=== PATIENT | male | born 1940 | race Caucasian/White ===

== ENCOUNTER 2016-05-19 09:11 | Emergency (ER) | payer OTHER | END 2016-05-19 09:20 | disposition left against medical advice (07) | LOC: CED 09:11 | DX: M79.661 Pain in right lower leg (principal); M79.89 Other specified soft tissue disorders; Z53.8 Procedure and treatment not carried out for other reasons ==

== ENCOUNTER → 2016-05-25 | Outpatient (CLI) | payer OTHER | LOC: CIMAGING 10:33 | PROVIDERS: ATTEND Nurse Practitioner | DX: M79.661 Pain in right lower leg (principal); Y93.55 Activity, bike riding | CPT/HCPCS: 73590-PO; G0463-PO ==

== ENCOUNTER → 2016-12-12 | Outpatient (CLI) | payer OTHER | LOC: BRMIMAGING 10:28 | PROVIDERS: ATTEND Internal Medicine Rheumatology | DX: M06.4 Inflammatory polyarthropathy (principal) | CPT/HCPCS: 73120-PO; 73630-PO ==

== ENCOUNTER → 2016-12-25 | Outpatient (CLI) | payer OTHER | LOC: CIMAGING 09:52 | PROVIDERS: ATTEND Physician Assistant Medical | DX: K59.00 Constipation, unspecified (principal) | CPT/HCPCS: 74000-PO ==

== ENCOUNTER 2017-04-15 10:42 | Emergency (ER) | payer OTHER ==
[2017-04-15 11:03] VITALS: BP 154/62; PULSE 74; RESP 18; TEMP 98; O2SAT 94
--- NOTE | 2017-04-15 11:21 | EDPHY ---
H & P Stated Complaint: c/o Rt arm/shoulder/hand swelling Time Seen by Provider: 04/15/17 10:48 HPI/ROS: Chief Complaint: Right arm pain and swelling HPI: 76-year-old male with a history of intermittent right hand swelling for the last several months. 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 He has had significant workup including x-rays, laboratory evaluations on the 2nd of this month which were normal including a normal CRP and normal uric acid. Patient states last night he felt that his right arm and wrist were more swollen than normal. Denies any recent trauma. No chest pain shortness of breath. No redness or warmth. He does have a history of renal cancer, had cryoablation therapy but has not a candidate for surgery at this time. Last MRI was in December. He has not had any imaging of his chest for the last several years. No cough or shortness of breath. ROS: 10 point Review of Systems is negative except as noted in the HPI. PMH: Renal cancer, hypertension, arthritis Social History: No smoking, no alcohol, no recreational drug use Family History: non-contributory Physical Exam: Gen: Awake, Alert, No Distress HEENT: Nose: no rhinorrhea Eyes: PERRLA, EOMI Mouth: Moist mucosa Neck: Supple, no JVD Chest: nontender, lungs clear to auscultation Heart: S1, S2 normal, no murmur Abd: Soft, non-tender, no guarding Back: no CVA tenderness, no midline tenderness Ext: There is mild erythema which is chronic in his right hand. He has no significant swelling of his forearms or wrist. I have measured them bilaterally and they are equal bilaterally. There is no soft tissue tenderness. No erythema. He has full range of motions of his wrist elbow in joint without any pain. He has 2+ radial ulnar pulses. Sensations intact in the radial, median, and ulnar nerve distribution. Capillary refill less than 2 sec bilaterally. Skin: no rash Neuro: CN II-XII intact, Sensation grossly intact, Strength 5/5 in bilateral upper and lower extremities - Personal History Tetanus Vaccine Date: < 10 years - Medical/Surgical History Hx Asthma: No Hx Chronic Respiratory Disease: No Hx Diabetes: No Hx Cardiac Disease: Yes Hx Renal Disease: Yes Hx Cirrhosis: No Hx Alcoholism: No Hx HIV/AIDS: No Hx Splenectomy or Spleen Trauma: No Other PMH: foot sx, kidney cancer surgery. HTN, hyperlipidemia, Vtach - Social History Smoking Status: Never smoked Constitutional: Initial Vital Signs Temperature (C) 36.6 C 04/15/17 10:57 Heart Rate 74 04/15/17 10:57 Respiratory Rate 18 04/15/17 10:57 Blood Pressure 154/62 H 04/15/17 10:57 O2 Sat (%) 94 04/15/17 10:57 O2 Delivery Mode Room Air Allergies/Adverse Reactions: No Known Allergies Allergy (Verified 02/10/16 13:17) Home Medications: Medication Instructions Recorded HCTZ (*) 02/10/16 LISINOPRIL/HYDROCHLOROTHIAZIDE 02/10/16 Metoprolol Tartrate 02/10/16 Norvasc 02/10/16 Potassium 02/10/16 SIMVASTATIN 02/10/16 Medical Decision Making ED Course/Re-evaluation: Patient presenting with concerns of swelling of his right arm. He is not significantly swollen at this time. There is no evidence of DVT. Patient does have a history of renal cancer. There is a possibility of possible intermittent vascular compression. I would be most concerned about an intrathoracic mass which might be causing this given his known renal cancer. Will get a chest x-ray now to rule out any intrathoracic mass which might be causing this. I do not not think a ultrasound is useful at this time because he does not have any swelling. The process which would be causing this would be intermittent. It is certainly possible that it is related to his migratory arthritis. I will refer him back to his bell valet for further evaluation. With a negative chest x-ray I do not think there is any evidence of acute process at this time Departure - Departure Disposition: Home, Routine, Self-Care Clinical Impression: Arm swelling Condition: Good Instructions: Arm Pain (ED) Additional Instructions: Follow up with your bell valet and primary care physician in 4-5 days if symptoms are not improving. Return to the emergency department for worsening swelling, worsening pain, redness, numbness or tingling, or any other concerns. Referrals: Ev Sykes MD [Primary Care Provider] - As per Instructions
== END 2017-04-15 12:00 | disposition home or self-care (01) ==
LOC: CED 10:42
DX: M79.89 Other specified soft tissue disorders (principal); I10 Essential (primary) hypertension; Z85.528 Personal history of other malignant neoplasm of kidney
CPT/HCPCS: 71046-PO

== ENCOUNTER 2017-04-22 14:10 | Emergency (ER) | payer OTHER ==
[2017-04-22 14:21] VITALS: BP 143/78; PULSE 73; RESP 14; TEMP 97.7; O2SAT 95
--- NOTE | 2017-04-22 14:44 | EDPHY ---
H & P Stated Complaint: Echymosis Left Arm Time Seen by Provider: 04/22/17 14:31 HPI/ROS: Chief Complaint: Bruise on his left forearm HPI: 76-year-old male noticed a bruise on his left forearm earlier today. He does not recall striking his arm or sustaining any other injuries. He does take a baby aspirin a day but is not on any other anticoagulants. I actually saw the patient a week ago because he had perceive some swelling in his right forearm. He is currently being evaluated for possible rheumatologic problem because he has been having swelling in his joints particularly in his right hand. Does rheumatologic studies have all been negative so far. He has not had any swelling. No redness. No warmth. No fevers or chills. No streaking up his arm. No heavy lifting. Patient does appear very anxious and as I recall from my visit with him last week he seems quite anxious at that time as well. Patient had normal laboratory evaluation on the 2nd of this month. ROS: 10 point Review of Systems is negative except as noted in the HPI. Family History: non-contributory Physical Exam: Gen: Awake, Alert, No Distress HEENT: Nose: no rhinorrhea Eyes: PERRLA, EOMI Mouth: Moist mucosa Neck: Supple, no JVD Ext: no edema, non-tender, patient has small amount of ecchymosis on his right forearm approximately 15 cm x 7 cm. There is no underlying hematoma. Had there is no erythema. Is not warm to the touch. There compartments are knees are all soft. He has full flexion extension strength without any difficulty. There is no muscular tenderness. Sensations intact in the radial median and ulnar nerve distribution. He has normal capillary refill. 2+ radial ulnar pulses. Skin: no rash Neuro: CN II-XII intact, Sensation grossly intact, Strength 5/5 in bilateral upper and lower extremities - Personal History Current Tetanus Diphtheria and Acellular Pertussis (TDAP): Yes Tetanus Vaccine Date: < 10 years - Medical/Surgical History Hx Asthma: No Hx Chronic Respiratory Disease: No Hx Diabetes: No Hx Cardiac Disease: Yes Hx Renal Disease: Yes Hx Cirrhosis: No Hx Alcoholism: No Hx HIV/AIDS: No Hx Splenectomy or Spleen Trauma: No Other PMH: foot sx (cellulitis post surg), kidney cancer surgery. HTN, hyperlipidemia, Vtach, Migratory inflammatory arthritis (Unknown underylying cause) - Social History Smoking Status: Never smoked Constitutional: Initial Vital Signs Temperature (C) 36.5 C 04/22/17 14:17 Heart Rate 73 04/22/17 14:17 Respiratory Rate 14 04/22/17 14:17 Blood Pressure 143/78 H 04/22/17 14:17 O2 Sat (%) 95 04/22/17 14:17 O2 Delivery Mode Room Air Allergies/Adverse Reactions: prednisone Allergy (Verified 04/22/17 14:22) Home Medications: Medication Instructions Recorded HCTZ (*) 02/10/16 Metoprolol Tartrate 02/10/16 Norvasc 02/10/16 Potassium 02/10/16 SIMVASTATIN 02/10/16 Lisinopril 04/22/17 Medical Decision Making ED Course/Re-evaluation: 76-year-old male with ecchymosis on his left forearm. There are no signs of infection at this time. He had normal laboratory evaluations on the 2nd of this month by his voice professor. I reviewed the some his last emergency department visit. He does not recall any traumas. There is no evidence of acute infection, there is no evidence of acute thrombus or DVT. There is some yellowing around the edge which suggest that this is an older injury. He is on aspirin but no other blood thinners. He has had normal coagulation studies prior. Patient is comfortable and is nontender. Will discharge with follow-up with his primary care physician. Departure - Departure Disposition: Home, Routine, Self-Care Clinical Impression: Ecchymosis Condition: Good Instructions: Ecchymosis (ED) Additional Instructions: Follow up with primary care physician in 3-4 days for further evaluation. Return to the emergency department for increasing redness, warmth, fevers, chills, swelling, chest pain, shortness of breath, or any other concerns. Referrals: Ev Sykes MD [Primary Care Provider] - As per Instructions
== END 2017-04-22 14:58 | disposition home or self-care (01) ==
LOC: CED 14:10
DX: M79.81 Nontraumatic hematoma of soft tissue (principal); I10 Essential (primary) hypertension; Z85.528 Personal history of other malignant neoplasm of kidney

== ENCOUNTER 2017-06-14 12:34 | Emergency (ER) | payer OTHER ==
--- NOTE | 2017-06-14 12:48 | CPEKG ---
Heart Rate: 54 RR Interval: 1111 P-R Interval: 176 QRSD Interval: 98 QT Interval: 408 QTC Interval: 387 P [place]: 51 QRS [place]: -52 T Wave [place]: 22 EKG Severity - ABNORMAL ECG - EKG Impression: SINUS RHYTHM EKG Impression: LEFT ANTERIOR FASCICULAR BLOCK Electronically Signed By: Sunil Jalloh 17-Jun-2017 17:25:45
[2017-06-14] MEDS ORDERED: ASPIRIN 81 MG CHEWABLE TAB PO ONE (12:51)
[2017-06-14 12:53] VITALS: TEMP 97.5
[2017-06-14 13:00] LABS: PLATELET COUNT 203 10^3/uL (150-400)
--- NOTE | 2017-06-14 13:29 | EDPHY ---
H & P Time Seen by Provider: 06/14/17 12:45 HPI/ROS: CHIEF COMPLAINT: Palpitations HISTORY OF PRESENT ILLNESS: Patient states he has felt some palpitations over the last 3 days. He states it feels like a"pounding"or"heavy heartbeat". He describes these heartbeats is being only 1 or at most 2-4 beats and then it stops. He says it has happened less than once an hour over the last 3 days. He denies any associated symptoms specifically no chest pain, shortness of breath, syncope, numbness, nausea, diaphoresis. He did exercise today which he does 6 days a week. He states he felt no palpitations during that time. His routine is 35 min of exercise which includes exercise bike and brisk walking. He states he measures his heartbeat and usually gets up to about 110-115 during exercise. Patient has history of palpitations which he said were much different than these in 2016. At that time he was seen by Dr. Maria and a Holter monitor was placed for 30 days. He had 1 episode of V-tach that occurred at 4 o'clock in the morning and was asymptomatic. Secondary to that finding on the monitor he was put on metoprolol and had a more extensive cardiac workup. This included exercise stress test on a treadmill, echo, evaluation by Dr. Jalloh and no interventions were recommended at that time. He has been essentially symptom- free since then and follows up with Dr. Maria regularly. Last visit was in January of last year and he has an appointment on July 15 of this year. No recent travel. REVIEW OF SYSTEMS: Constitutional: No fever, no chills. Eyes: No discharge. ENT: No sore throat. Cardiovascular: No chest pain, no edema, no decreased exercise tolerance. Respiratory: No cough, no shortness of breath. Gastrointestinal: No abdominal pain, no vomiting. Genitourinary: No dysuria. Musculoskeletal: No back pain. Skin: No rashes. Neurological: No headache. General Appearance: Alert, no distress. Eyes: Pupils equal and round no pallor or injection. ENT, Mouth: Mucous membranes moist. White lesion to left lateral tongue. Dark spot to buccal mucosa on the left as well. Respiratory: There are no retractions, lungs are clear to auscultation. Cardiovascular: Regular rate and rhythm. Gastrointestinal: Abdomen is soft and nontender, no masses, bowel sounds normal. Neurological: Awake alert, no focal weakness. Skin: Warm and dry, no rashes. Musculoskeletal: Neck is supple nontender. Extremities are symmetrical, full range of motion, no edema. Psychiatric: Patient is oriented X 3, there is no agitation. Medical/surgical history: Multiple orthopedic surgeries including bilateral hip replacements, shoulder, foot. Hernia surgeries x2. Partial nephrectomy on the left in 2009 for renal cell carcinoma. Right cryo surgery to kidney in 2015 for renal cell carcinoma. Prostate cancer with radiation in 2000. Possible rheumatoid arthritis currently being evaluated. Social history: Nonsmoker Smoking Status: Never smoked Constitutional: Initial Vital Signs Temperature (C) 36.4 C 06/14/17 12:40 Heart Rate 58 L 06/14/17 12:40 Respiratory Rate 18 06/14/17 12:40 Blood Pressure 165/86 H 06/14/17 12:40 O2 Sat (%) 96 06/14/17 12:40 O2 Delivery Mode Room Air Allergies/Adverse Reactions: prednisone Allergy (Verified 06/14/17 12:54) Home Medications: Medication Instructions Recorded HCTZ (*) 02/10/16 Metoprolol Tartrate 02/10/16 Norvasc 02/10/16 Potassium 02/10/16 SIMVASTATIN 02/10/16 Lisinopril 04/22/17 Medical Decision Making - Diagnostics Imaging Results: Imaging Impressions Chest X-Ray 06/14/17 12:51 Impression: No discrete intrathoracic pathology. ED Course/Re-evaluation: EKG shows normal sinus rhythm with a rate of 54, left anterior fascicular block , otherwise normal intervals. See trace master for further detail. Re-evaluation at 1:45 p.m. After stating he had another episode of palpitations. Review of the monitor shows no PVCs, PACs, arrhythmia. 2:[address] Maria. Reviewed patient's presentation, complaints, previous medical history and today's workup with the seat mender. We both feel outpatient follow-up is appropriate with good return precautions. Differential Diagnosis: Differential diagnosis includes but is not limited to arrhythmia, acute coronary syndrome, chest wall pain, electrolyte abnormality. After evaluation patient with very minor complaints of palpitations verses chest wall muscle fasciculations. No evidence of arrhythmia, multiple PVCs, electrolyte abnormality, pneumonia, myocardial infarction. Discussed with Dr. Maria, seat mender, and feel that outpatient follow-up safe. He has appointment with his seat mender in approximately 1 month. Essentially asymptomatic in the emergency department with no further complaints. Reviewed return precautions in detail. Stable for discharge. - Data Points Laboratory Results: Laboratory Results 06/14/17 12:56 18 12:56 18 18 12:56 12:56 WBC 10.51 10^3/uL H 10^3/uL (3.80-9.50) RBC 5.31 10^6/uL 10^6/uL (4.40-6.38) Hgb 15.7 g/dL g/dL (13.7-17.5) Hct 44.0 % % (40.0-51.0) MCV 82.9 fL fL (81.5-99.8) MCH 29.6 pg pg (27.9-34.1) MCHC 35.7 g/dL g/dL (32.4-36.7) RDW 13.2 % % (11.5-15.2) Plt Count 203 10^3/uL 10^3/uL (150-400) MPV 9.3 fL fL (8.7-11.7) Neut % (Auto) 78.3 % H % (39.3-74.2) Lymph % (Auto) 12.5 % L % (15.0-45.0) [place] % (Auto) 7.5 % % (4.5-13.0) Eos % (Auto) 1.0 % % (0.6-7.6) Baso % (Auto) 0.4 % % (0.3-1.7) Nucleat RBC Rel Count 0.0 % % (0.0-0.2) Absolute Neuts (auto) 8.24 10^3/uL H 10^3/uL (1.70-6.50) Absolute Lymphs (auto) 1.31 10^3/uL 10^3/uL (1.00-3.00) Absolute Monos (auto) 0.79 10^3/uL 10^3/uL (0.30-0.80) Absolute Eos (auto) 0.10 10^3/uL 10^3/uL (0.03-0.40) Absolute Basos (auto) 0.04 10^3/uL 10^3/uL (0.02-0.10) Absolute Nucleated RBC 0.00 10^3/uL 10^3/uL (0-0.01) Immature Gran % 0.3 % % (0.0-1.1) Immature Gran # 0.03 10^3/uL 10^3/uL (0.00-0.10) Sodium 140 mEq/L mEq/L (135-145) Potassium 3.5 mEq/L mEq/L (3.5-5.2) Chloride 98 mEq/L mEq/L (97-110) Carbon Dioxide 30 mEq/l mEq/l (22-31) Anion Gap 12 mEq/L mEq/L (8-16) BUN 19 mg/dL mg/dL (7-23) Creatinine 1.2 mg/dL mg/dL (0.7-1.3) Estimated GFR 59 Glucose 92 mg/dL mg/dL (70-100) Calcium 9.8 mg/dL mg/dL (8.5-10.4) Troponin I < 0.012 ng/mL ng/mL (0.000-0.034) Medications Given: Discontinued Medications Aspirin (Aspirin) 324 mg PO EDNOW ONE Stop: 06/14/17 12:52 Last Admin: 06/14/17 13:33 Dose: 324 mg Departure - Departure Clinical Impression: Palpitations Condition: Good Instructions: Heart Palpitations (DC) Additional Instructions: Follow-up with Dr. Maria, cardiology as scheduled on July 15. Return to the emergency department if you feel new or concerning symptoms, specifically chest pain, lightheadedness, racing heart or other issues. Referrals: Ev Sykes MD [Primary Care Provider] - As per Instructions Clay Maria MD [Medical Doctor] - As per Instructions
[2017-06-14 14:43] VITALS: BP 143/81; PULSE 55; RESP 16; O2SAT 94
== END 2017-06-14 14:42 | disposition home or self-care (01) ==
LOC: CED 12:34
DX: R00.2 Palpitations (principal)
CPT/HCPCS: 71045-PO; 80048-PO; 84484-PO; 85025-PO